=== PATIENT | female | born 1965 | race African-American/Black ===

== ENCOUNTER 2025-06-20 11:57 | Outpatient (AMB) | payer OTHER, SELFPAY ==
--- NOTE | 2025-06-20 12:24 | MHC.OFFVIS ---
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 She was having about 10 headaches a month and each was lasting for a few hours or until next day. [facility] Medical History (Updated 06/20/25 @ 12:27 by Armida Mckeon MD) Anxiety Carpal tunnel syndrome Migraine Review of Systems Const Details: Constitutional:?No fever, chills, fatigue, weight loss, or night sweats. HEENT:?No headache, vision changes, hearing loss, nasal congestion, sore throat. Neurological:?No dizziness, syncope, seizures, numbness, tingling, weakness, tremors, memory loss. Psychiatric:?No anxiety, depression, mood swings, sleep disturbance, or hallucinations. Endocrine:?No heat/cold intolerance, polydipsia, polyuria, or hair/skin changes. Hematologic/Lymphatic:?No easy bruising, bleeding, or lymphadenopathy. Integumentary (Skin):?No rash, lesions, itching, or color changes. ? Physical Exam Neuro Other: Mental Status: Alert and oriented to person, place, and time. Normal attention. Normal spontaneous speech, fluency, and comprehension. No obvious issues with mood and memory. Affect is appropriate. Cranial Nerves: CN II: Visual grady full to confrontation, visual acuity intact. CN III, IV, : Pupils equal, round, reactive to light and accommodation. Extraocular movements are normal. CN V: Facial sensation is normal. CN VII: Facial movements symmetrical. CN VIII: Hearing intact to bedside conversation is normal. CN IX, X: Palate elevates symmetrically. CN XI: Shoulder shrug and head turn symmetrical. CN XII: Tongue midline without atrophy or fasciculations. Extrapyramidal: Full facial expressions and blinking. No rigidity. Movements are appropriate with no tremor or abnormality. Speech: Normal; no dysarthria or tremor. Assessment & Plan Assessment & Plan (1) Migraine without aura: Comment: NCV/EMG UEs on 03/14/18 at off: WNL CT brain at [facility] in 2013: mild cerebellar atrophy and slight ventriculomegaly MRI brain at [facility] in 2013: also mild MVD. Code(s): G43.009 - Migraine without aura, not intractable, without status migrainosus Category: Medical Qualifiers: Status migrainosus presence: without status migrainosus Intractability: not intractable Qualified Code(s): G43.009 - Migraine without aura, not intractable, without status migrainosus Plan Impression: Migraine w/o aura: still having about 10 headaches a month Rec: a: Propranalol ER 60mg a day b: OTC migriane med PRN c: She did not want to change her regimen of meds at this time. Coding Level of Care Code Tele Est Pt Level 4 (05252) Diagnoses Migraine without aura and without status migrainosus, not intractable G43.009 Status migrainosus presence: without status migrainosus Intractability: not intractable
--- OUTSIDE RECORDS SUMMARY | 2025-06-20 12:41 | XMS_ITS | Encounter Summary ---
Author Organization [facility] Address [address] [place] [address] Care Team Providers Care Director Of Scientific Research Name Role Phone Tanvir Bonilla MD Primary Care Provider [phone] Encounter Details Date Type Department Care Team Description 09/15/2018 [facility] Report Medical Records [address] [place] [id number] Nancy Gonzalez Social History Tobacco Use Types Packs/Day Years Used Date Smoking Tobacco: Never Alcohol Use Standard Drinks/Week Comments Yes 0 (1 standard drink = 0.6 oz pur e alcohol) 1/mo glasses of wine Sex Assigned at Date Recorded Not on file documented as of this encounter Plan of Treatment Not on file documented as of this encounter Visit Diagnoses Not on filedocumented in this encounter Care Teams Director Of Scientific Research Relationship Specialty Start Date End Date Tanvir Bonilla MD [address] [place] [address] PCP - General Internal Medicine 06/21/15 documented as of this encounter
--- OUTSIDE RECORDS SUMMARY | 2025-06-20 12:41 | XMS_ITS | Clinical Summary ---
[facility] Address [address] [place] [address] Phone Care Team Providers Care Risk Control Field Representative Name Role Phone Tanvir Bonilla MD Primary Care Provider [phone] Allergies Active Allergy Reactions Criticality Noted Date Comments Oxycodone 06/18/2025 Medications atorvastatin (LIPITOR) 40 mg tablet Take 1 tablet (40 mg total) by mouth 1 (one) time each day. Active propranolol LA (INDERAL LA) 60 mg 24 hr capsule Take 1 capsule (60 mg total) by mouth 1 (one) time each day. Active Encounters Date Type Department Care Team Description 06/18/2025 2:00 PM EDT Office Visit Internal Medicine - [address] [phone] Tanvir Bonilla MD Adult general medical examination (Primary Dx); Screening for deficiency anemia; Screening for hyperlipidemia; Screening for diabetes mellitus; Screening for thyroid disorder 06/18/2025 Telephone Internal Medicine - [address] [phone] Tanvir Bonilla MD Referral (Neurology Referral) 06/04/2025 Telephone Internal Medicine - [address] [phone] Tanvir Bonilla MD Referral from Last 3 Months Surgical History Surgery Date Site/Laterality Comments NECK SURGERY PROCEDURE: HISTORICAL NECK SURGERY; COMMENT: when she was 4 years old, thinks they removed thyroid but not sure Family History Medical History Relation Name Comments Breast cancer Aunt 1 states 3 aunts in her mother sided diead from breast CA, according to patient she is BRCA negative Hypertension Father [place] Prostate cancer Father Breast cancer Mother Other: sickle cell trait Mother Relation Name Status Comments Aunt 1 Aunt 2 Father Alive Mother Social History Tobacco Use Types Packs/Day Years Used Date Smoking Tobacco: Never Smokeless Tobacco: Never Tobacco Cessation:Counseling Given: Not Answered Alcohol Use Standard Drinks/Week Comments Yes 0 (1 standard drink = 0.6 oz pur e alcohol) Comments No Sex and Gender Information Value Date Recorded Sex Assigned at Not on file Legal Sex Female 3:29 AM EST Gender Identity Not on file Sexual Orientation Not on file Obstetrics History Last Filed Vital Signs Vital Sign Reading Time Taken Comments Blood Pressure 130/78 06/18/2025 1:40 PM EDT Pulse 62 06/18/2025 1:40 PM EDT Temperature - - Respiratory Rate - - Oxygen Saturation - - Inhaled Oxygen Concentration - - Weight 96 kg (211 lb 11.2 oz) 06/18/2025 1:40 PM EDT Height 170.2 cm (5' 7 ) 06/18/2025 1:40 PM EDT Body Mass Index 33.16 06/18/2025 1:40 PM EDT Plan of Treatment Health Maintenance Due Date Last Done Comments Cervical Cancer Screening: P ap Smear 1986 Pneumococcal Vaccine: 50+ Years (1 of 1 - PCV) 2015 Zoster Vaccines (1 of 2) 2015 Colorectal Cancer Screening: Colonoscopy 11/01/2022 HIV Screening 11/01/2022 Hepatitis C Screening 11/01/2022 Social Influencers of Health Screening 11/01/2022 COVID-19 Vaccine (4 - 2023-2 5 season) 2024 10/24/2021, 03/12/2021, 02/18/2021 Depression Screening 11/29/2024 Influenza Vaccine (#1) 2025 Breast Cancer Screening 05/01/2026 05/01/2024 Cholesterol Screening (Lipid Panel) 06/18/2030 06/18/2025, 03/30/2024 DTaP,Tdap,and Td Vaccines (3 - Td or Tdap) 03/30/2034 03/30/2024, 03/09/2013 RSV Immunization Adult Patients (1 - 1-dose 75+ series) 02/04/2040 HIB Vaccines Aged Out No longer eligi ble based on patient's age to complete this topic HPV Vaccines Aged Out No longer eligi ble based on patient's age to complete this topic Hepatitis A Vaccines Aged Out No long er eligible based on patient's age to complete this topic Hepatitis B Vaccines Aged Out No long er eligible based on patient's age to complete this topic IPV Vaccines Aged Out No longer eligi ble based on patient's age to complete this topic MMR Vaccines Aged Out No longer eligi ble based on patient's age to complete this topic Meningococcal ACWY Vaccine Aged Out N o longer eligible based on patient's age to complete this topic Meningococcal B Vaccine Aged Out No l onger eligible based on patient's age to complete this topic RSV Immunization Patients Under 20 months Aged Out No longer eligible b ased on patient's age to complete this topic Varicella Vaccines Aged Out No longer eligible based on patient's age to complete this topic Procedures Procedure Name Priority Date/Time Associated Diagnosis Comments COMPLETE BLOOD COUNT Routine 06/18/2025 1:59 PM EDT Screening for deficiency anemia COMPREHENSIVE METABOLIC PANEL Routine 06/18/2025 1:59 PM EDT Screening for diabetes mellitus LIPID PANEL WITH REFLEX TO DIRECT LDL Routine 06/18/2025 1:59 PM EDT Screening for hyperlipidemia THYROID STIMULATING HORMONE WITH REFLEX TO FREE T4 AND FREE T3 Routine 06/18/2025 1:59 PM EDT Screening for thyroid disorder IGOR SCREENING DIGITAL Routine 05/01/2024 8:34 AM EDT Encounter for screening mammogram for malignant neoplasm of breast from Last 3 Months or Most Recently Relevant to Health Maintenance Results * Thyroid stimulating hormone with reflex to free t4 and free t3 (06/18/2025 1:59 PM EDT) TSH 1.30 0.40 - 4.00 mcIU/mL LAB CHEMISTRY METHOD 06/18/2025 8:00 PM EDT [facility] Blood Venous blood specimen / Unknown Venipuncture / Unknown 06/18/2025 1:59 PM EDT 06/18/2025 1:59 PM EDT us Tanvir Bonilla MD LAB BLOOD ORDERABLES Final Res ult [facility] [address] [place] [address], [place] [phone] * (ABNORMAL) Lipid panel with reflex to direct LDL (06/18/2025 1:59 PM EDT) Cholesterol 215(H) 0 - 200 mg/dL LAB CHEMISTRY METHOD 06/18/2025 7:30 PM EDT [facility] Triglycerides 176(H) 0 - 150 mg/dL LAB CHEMISTRY METHOD 06/18/2025 7:30 PM EDT [facility] HDL 39(L) >=40 mg/dL LAB CHEMISTRY METHOD 06/18/2025 7:30 PM EDT [facility] LDL Calculated 141(H) 0 - 100 mg/dL LAB CHEMISTRY METHOD 06/18/2025 7:30 PM EDT [facility] VLDL Cholesterol Inder 35.2 mg/dL LAB CHEMISTRY METHOD 06/18/2025 7:30 PM EDT [facility] Non HDL Chol. (LDL+VLDL) 176(H) <145 mg/dL LAB CHEMISTRY METHOD 06/18/2025 7:30 PM EDT [facility] Chol/HDL Ratio 5.5(H) 0.0 - 4.4 LAB CHEMISTRY METHOD 06/18/2025 7:30 PM EDT [facility] Blood Venous blood specimen / Unknown Venipuncture / Unknown 06/18/2025 1:59 PM EDT 06/18/2025 1:59 PM EDT us Tanvir Bonilla MD LAB BLOOD ORDERABLES Final Res ult [facility] [address] [place] [address], [place] [phone] * (ABNORMAL) Complete blood count (06/18/2025 1:59 PM EDT) [facility] Signature WBC 5.8 4.8 - 10.8 K/mcL LAB HEMETOLOGY METHOD 06/18/2025 3:33 PM EDT [facility] RBC 4.50 3.80 - 4.80 M/mcL LAB HEMETOLOGY METHOD 06/18/2025 3:33 PM EDT [facility] Hemoglobin 12.9 11.5 - 16.0 g/dL LAB HEMETOLOGY METHOD 06/18/2025 3:33 PM EDT [facility] Hematocrit 41.3 35.0 - 47.0 % LAB HEMETOLOGY METHOD 06/18/2025 3:33 PM EDT [facility] MCV 91.6 79.0 - 98.0 FL LAB HEMETOLOGY METHOD 06/18/2025 3:33 PM EDT [facility] MCH 28.6 27.0 - 32.0 pcg LAB HEMETOLOGY METHOD 06/18/2025 3:33 PM EDT [facility] MCHC 31.2(L) 32.0 - 37.0 g/dL LAB HEMETOLOGY METHOD 06/18[facility]2025 3[facility] RDW 12.5 11.0 - 15.0 % LAB HEMETOLOGY METHOD 06/18/2025 3:33 PM EDT [facility] Platelets 215 130 - 400 K/mcL LAB HEMETOLOGY METHOD 06/18/2025 3:33 PM EDT [facility] MPV 11.5(H) 7.0 - 11.0 FL LAB HEMETOLOGY METHOD 06/18/2025 3:33 PM EDT [facility] NRBC 0.0 <1.0 % LAB HEMETOLOGY METHOD 06/18/2025 3:33 PM EDT [facility] NRBC Absolute 0.00 <0.10 K/mcL LAB HEMETOLOGY METHOD 06/18/2025 3:33 PM EDT [facility] Blood Venous blood specimen / Unknown Venipuncture / Unknown 06/18/2025 1:59 PM EDT 06/18/2025 1:59 PM EDT us Tanvir Bonilla MD LAB BLOOD ORDERABLES Final Res ult [facility] [address] [place] [address], [place] [phone] * (ABNORMAL) Comprehensive metabolic panel (06/18/2025 1:59 PM EDT) Sodium 138 133 - 145 mmol/L LAB CHEMISTRY METHOD 06/18/2025 7:30 PM [facility] Potassium 4.1 3.5 - 5.5 mmol/L LAB CHEMISTRY METHOD 06/18/2025 7:30 PM [facility] Chloride 106 96 - 110 mmol/L LAB CHEMISTRY METHOD 06/18/2025 7:30 PM [facility] CO2 29 21 - 32 mmol/L LAB CHEMISTRY METHOD 06/18/2025 7:30 PM [facility] Anion Gap 3 3 - 11 LAB CHEMISTRY METHOD 06/18/2025 7:30 PM [facility] Glucose 81 70 - 100 mg/dL LAB CHEMISTRY METHOD 06/18/2025 7:30 PM [facility] BUN 11 5 - 25 mg/dL LAB CHEMISTRY METHOD 06/18/2025 7:30 PM [facility] Creatinine 1.12(H) 0.50 - 1.10 mg/dL LAB CHEMISTRY METHOD 06/18/2025 7:30 PM [facility] eGFR 56(L) >=60 mL/min/1. 73m2 LAB CHEMISTRY METHOD 06/18/2025 7:30 PM EDT [facility] Comment:Calculation based on the Chronic Kidney Disease Epidemiology Collaboration (CKD-EPI) equation refit without adjustment for race. BUN/Creatinine Ratio 9.8 LAB CHEMISTRY METHOD 06/18/2025 7:30 PM EDT [facility] Calcium 9.5 8.5 - 10.5 mg/dL LAB CHEMISTRY METHOD 06/18/2025 7:30 PM EDT [facility] AST (SGOT) 12 10 - 42 unit/L LAB CHEMISTRY METHOD 06/18/2025 7:30 PM [facility] ALT (SGPT) 16 10 - 60 unit/L LAB CHEMISTRY METHOD 06/18/2025 7:30 PM [facility] Alkaline Phosphatase 105 42 - 121 unit/L LAB CHEMISTRY METHOD 06/18/2025 7:30 PM [facility] Total Protein 7.6 6.0 - 8.0 g/dL LAB CHEMISTRY METHOD 06/18/2025 7:30 PM [facility] Albumin 3.6 3.2 - 5.0 g/dL LAB CHEMISTRY METHOD 06/18/2025 7:30 PM [facility] Total Bilirubin 0.4 0.0 - 1.4 mg/dL LAB CHEMISTRY METHOD 06/18/2025 7:30 PM EDT [facility] Blood Venous blood specimen / Unknown Venipuncture / Unknown 06/18/2025 1:59 PM EDT 06/18/2025 1:59 PM EDT us Tanvir Bonilla MD LAB BLOOD ORDERABLES Final Res ult [facility] [address] [place] [address], * IGOR SCREENING DIGITAL (05/01/2024 8:34 AM EDT) Anatomical Region Laterality Modality Mammography 04/27/2024 10:4 6 AM EDT Narrative 05/01/2024 8:34 AM EDT [facility] Diagnostic Imaging Department [address] [place] [id number] Patient: JOSEPH MERIDASTACIE Boone /Age/Sex: 1965 - 59 - F Unit#: [id number] [facility]Ordering Site: [facility] Ordering Physician: NANCY STOCKTON MD [facility] Screening Digital - 04/29/24 - 1119 Report Status:Signed EXAM: [facility] Screening Digital EXAM DATE AND TIME: 04/29/2024 11:20 AM HISTORY: Annual screening COMPARISON: Multiple exams dating back to 2018 TECHNIQUE: Bilateral digital breast tomosynthesis was performed in the CC and MLO projections. Computer aided detection with [employer] 3D 3.1 was employed. TISSUE DENSITY: b. There are scattered areas of fibroglandular density. FINDINGS: No suspicious masses, grouped microcalcifications, or areas of architectural distortion are seen. The skin and vascularity are unremarkable. IMPRESSION: Stable mammographic appearance of the breasts. No evidence of malignancy is seen. A negative mammogram in the presence of a clinically suspicious palpable abnormality does not preclude the possibility of malignancy or alter the indications for biopsy. BI-RADS: Category 1: Negative RECOMMENDATION(S): 1: Routine screening mammogram BILATERAL in 1 year. 3341F, 7054F Dictating Physician: BETTY SCHWAB MD Electronically Signed by: BETTY SCHWAB MD Dic Date/Time: 05/01/24832 Sign date/Time: 05/01/24833 Procedure Note Betty Schwab MD - 09/13/2024 [facility] Diagnostic Imaging Department [address] [place] [id number] Patient: JOSEPH MERIDASTACIE D.O.B./Age/Sex: 1965 - 59- F Unit#: [id number] Location/Status: [facility] CLI Mnemonic/Ordering Site: [facility] Ordering Physician: NANCY STOCKTON MD [facility] Screening Digital - 04/29/24 - 1119 Report Status:Signed EXAM: [facility] Screening Digital EXAM DATE AND TIME: 04/29/2024 11:20 AM HISTORY: Annual screening COMPARISON: Multiple exams dating back to 2018 TECHNIQUE: Bilateral digital breast [facility]. Computer aided detection with [employer] AI 3D 3.1was employed. TISSUE DENSITY: b. There are scattered areas of fibroglandular density. FINDINGS: No suspicious masses, grouped microcalcifications, or areas ofarchitectural distortion are seen. The skin and vascularity are unremarkable. IMPRESSION: Stable mammographic appearance of the breasts. No evidence of malignancyis seen. A negative mammogram in the presence of a clinically suspicious palpable abnormality does not preclude the possibility of malignancy or alter the indications for biopsy. BI-RADS: Category 1: Negative RECOMMENDATION(S): 1: Routine screening mammogram BILATERAL in 1 year. 3341F, 7089F Dictating Physician: BETTY SCHWAB MD Electronically Signed by: BETTY SCHWAB MD Dic Date/Time: 05/01/24832 Sign date/Time: 05/01/24833 Nancy Stockton MD IMG BI PROCEDURES Final Result from Last 3 Months or Most Recently Relevant to Health Maintenance Insurance [place] [address] Care Teams Risk Control Field Representative Relationship Specialty Start Date End Date Tanvir Bonilla MD [address] [place] [id number] PCP - General Internal Medicine 06/18/25
== END 2025-06-20 12:32 | disposition home or self-care (01) ==
LOC: HO.HSM 11:58
PROVIDERS: PCP Internal Medicine; Visit Provider Psychiatry & Neurology Neurology
DX: G43.009 Migraine without aura, not intractable, without status migrainosus (principal)
CPT/HCPCS: 99214